=== PATIENT | male | born 1955 | race Caucasian/White ===

== ENCOUNTER → 2017-12-08 | Day surgery (SDC) | payer OTHER | END | disposition home or self-care (01) | LOC: ADM 12-01 12:30 → AMB-ENDOS 06:00 | DX: D13.1 Benign neoplasm of stomach (principal) ==

== ENCOUNTER 2024-03-07 21:00 | Emergency (ER) | payer OTHER ==
[~2024-03-07] VITALS: Ht 160 cm; Wt 63.5 kg
[2024-03-07] MEDS ORDERED: PREVACID30 M1 PO (21:05)
[2024-03-07] MEDS ORDERED: ATORVASTATIN CA10 MG PO (21:06)
[2024-03-07] MEDS ORDERED: TIROSINT137 MCG PO (21:06)
[2024-03-07] MEDS ORDERED: SERTRALINE HCL100 MG PO (21:06)
[2024-03-07] MEDS ORDERED: METFORMIN HCL500 M3 PO (21:07)
[2024-03-07] MEDS ORDERED: COZAAR50 MG PO (21:07)
[2024-03-07] MEDS ORDERED: TRAZODONE HCL100 MG PO (21:08)
[2024-03-07 23:55] LABS: HEMATOCRIT 37.6 % (39.0-48.0); HEMOGLOBIN 12.2 g/dL (13-16.00); MEAN CELL VOLUME 81.5 fL (80.0-100.00); MEAN CORPUSCULAR HEMOGLOBIN 26.4 pg (27.00-32.0); MEAN CORPUSCULAR HGB CONC 32.4 g/dl (32.0-36.0); PLATELET COUNT 200 K/uL (150-450); RED BLOOD COUNT 4.61 M/uL (4.00-6.00); RED CELL DISTRIBUTION WIDTH 20.5 % (11.5-14.5)
[2024-03-08] MEDS ORDERED: ACETAMINOPHEN 500 MG GEL..CAP PO STA (00:06)
[2024-03-08] MEDS ORDERED: ORPHENADRINE CITRATE 30 MG/ML AMPUL IM STA (00:07)
[2024-03-08 00:19] LABS: ALBUMIN 3.5 gm/dL (3.4-5.0); BILIRUBIN TOTAL 0.38 mg/dL (0.3-1.2); CALCIUM 9.3 mg/dL (8.5-10.1); CREATININE SERUM 1.25 mg/dL (0.70-1.30); GFR 57.1; GLOBULINA 3.3 G/DL (2.4-3.5); POTASSIUM 5.61 mEq/L (3.5-5.1); TOTAL PROTEIN 6.8 gm/dL (6.4-8.2)
[2024-03-08] MEDS ORDERED: ORPHENADRINE CITRATE 30 MG/ML AMPUL ONE (00:19)
[2024-03-08] MEDS ORDERED: ACETAMINOPHEN 500 MG GEL..CAP PO ONE (00:19)
[2024-03-08] MEDS ORDERED: NABUMETONE750 MG PO (02:36)
[2024-03-08] MEDS ORDERED: DOLOGESIC-DF 51 EACH PO ×2 (02:37→02:41)
== END 2024-03-08 02:54 ==
LOC: ER 21:01
PROVIDERS: General Practice
DX: S39.81XA Other specified injuries of abdomen, initial encounter (principal); W19.XXXA Unspecified fall, initial encounter; Y93.89 Activity, other specified; Y92.89 Other specified places as the place of occurrence of the external cause; Y99.8 Other external cause status; I10 Essential (primary) hypertension; E03.8 Other specified hypothyroidism; E11.9 Type 2 diabetes mellitus without complications; Z79.84 Long term (current) use of oral hypoglycemic drugs
CPT/HCPCS: 36415; 74177; 96372; 99284; J2360; Q9965

== ENCOUNTER 2024-03-14 14:06 | Outpatient (CLI) | payer OTHER ==
[~2024-03-14 14:06] MED LIST: ATORVASTATIN CA10 MG PO; COZAAR50 MG PO; DOLOGESIC-DF 51 EACH PO; METFORMIN HCL500 M3 PO; NABUMETONE750 MG PO; PREVACID30 M1 PO; SERTRALINE HCL100 MG PO; TIROSINT137 MCG PO; TRAZODONE HCL100 MG PO
== END 2024-03-14 14:16 | disposition home or self-care (01) ==
LOC: RAD 14:06
PROVIDERS: ATTEND Internal Medicine
DX: S20.302A Unspecified superficial injuries of left front wall of thorax, initial encounter (principal)

== ENCOUNTER 2024-07-21 19:26 | Emergency (ER) | payer OTHER ==
[~2024-07-21] VITALS: Ht 160 cm; Wt 63.5 kg
[2024-07-21] MEDS ORDERED: LEVALBUTEROL HCL 1.25 MG/3 ML SOLUTION IH STA (20:34)
[2024-07-21] MEDS ORDERED: NITROGLYCERIN 0.4 MG TAB.SUBL SL ONE (20:40)
[2024-07-21] MEDS ORDERED: IPRATROPIUM BROMIDE 0.5 MG/2.5 ML AMPUL.NEB IH SCH (20:45)
[2024-07-21] MEDS ORDERED: NITROGLYCERIN 0.4 MG TAB.SUBL SL SCH (20:45)
[2024-07-21 21:07] LABS: HEMATOCRIT 37.4 % (39.0-48.0); HEMOGLOBIN 12.5 g/dL (13-16.00); MEAN CELL VOLUME 86.9 fL (80.0-100.00); MEAN CORPUSCULAR HGB CONC 33.4 g/dl (32.0-36.0); PLATELET COUNT 242 K/uL (150-450); RED BLOOD COUNT 4.31 M/uL (4.00-6.00); RED CELL DISTRIBUTION WIDTH 13.9 % (11.5-14.5)
[2024-07-21] MEDS ORDERED: IPRATROPIUM BROMIDE 0.5 MG/2.5 ML AMPUL.NEB IH ONE (21:10)
[2024-07-21] MEDS ORDERED: LEVALBUTEROL HCL 1.25 MG/3 ML SOLUTION IH ONE (21:10)
[2024-07-21 21:31] LABS: ABG PH 7.459 (7.35-7.45); ABG PO2 107.3 mmHg (80-100); ABG pCO2 31.4 mmHg (35-45); BICARBONATE 21.8 mmol/l (23-25); SaO2 98.4 %; Tco2 22.8 mmol/l; allen test SATISFACTORY; puncture site RADIAL RIGHT
[2024-07-21 21:32] LABS: o2 21 %
== END 2024-07-21 22:46 | disposition home or self-care (01) ==
LOC: ER 19:29
PROVIDERS: General Practice
DX: J10.1 Influenza due to other identified influenza virus with other respiratory manifestations (principal); R05.8 Other specified cough; R07.89 Other chest pain; Z20.822 Contact with and (suspected) exposure to COVID-19

== ENCOUNTER 2024-12-20 07:08 | Outpatient (CLI) | payer OTHER | END 2024-12-20 07:09 | disposition home or self-care (01) | LOC: NUCLEAR 07:08 | PROVIDERS: ATTEND Physical Medicine & Rehabilitation | DX: M06.9 Rheumatoid arthritis, unspecified (principal); M13.0 Polyarthritis, unspecified | CPT/HCPCS: 78306; A9503 ==

== ENCOUNTER 2024-12-20 10:23 | Outpatient (CLI) | payer OTHER | END 2024-12-20 10:25 | disposition home or self-care (01) | LOC: RAD 10:23 | PROVIDERS: ATTEND Physical Medicine & Rehabilitation | DX: M54.2 Cervicalgia (principal); M06.9 Rheumatoid arthritis, unspecified ==

== ENCOUNTER 2025-03-06 07:04 | Outpatient (CLI) | payer OTHER | END 2025-03-06 07:05 | disposition home or self-care (01) | LOC: NUCLEAR 07:04 | PROVIDERS: ATTEND Internal Medicine | DX: I20.9 Angina pectoris, unspecified (principal) | CPT/HCPCS: 78452; 93017; A9500 ==

== ENCOUNTER 2025-03-08 10:43 | Emergency (ER) | payer OTHER ==
[~2025-03-08] VITALS: Ht 160 cm; Wt 63.5 kg
[2025-03-08 10:51] VITALS: BP 165/71; O2SAT 100
[2025-03-08 11:39] LABS: BASO % 0.5 % (0.1-1.2); EOS # 0.06 (0.04-0.54); EOS % 1.0 % (0.7-7.0); LYMPH # 0.65 (1.18-3.74); LYMPH % 10.9 % (19.3-53.1); MEAN PLATELET VOLUME 10.10 fl (9.4-12.4); MONO # 0.39 (0.24-0.82); MONO % 6.5 % (4.7-12.5); NEUT # 4.79 (1.56-6.13); NEUT % 80.4 % (34.0-71.1); RED CELL DISTRIBUTION WIDTH 13.6 % (11.6-14.4)
[2025-03-08 12:10] LABS: BUN CREA RATIO 19.0 (7.0-25.0); CREATININE SERUM 1.21 mg/dL (0.70-1.30); GFR 59.11; GLUCOSE FASTING 178.0 mg/dL (65-100); OSMOLALITY SERUM 295.0 MOSM/KG (275-295)
[2025-03-08] MEDS ORDERED: LEVALBUTEROL HCL 0.63 MG/3 ML SOLUTION IH ONE ×2 (12:57→13:00)
[2025-03-08 12:59] LABS: COVID-19 AG NEGATIVE (NEGATIVE)
== END 2025-03-08 15:13 | disposition home or self-care (01) ==
LOC: ER 10:48
PROVIDERS: Emergency Medicine
DX: R06.02 Shortness of breath (principal); Z20.822 Contact with and (suspected) exposure to COVID-19; I10 Essential (primary) hypertension; E03.8 Other specified hypothyroidism; E11.9 Type 2 diabetes mellitus without complications; Z79.84 Long term (current) use of oral hypoglycemic drugs

== ENCOUNTER 2025-03-13 10:25 | Outpatient (CLI) | payer OTHER | END 2025-03-13 10:32 | disposition home or self-care (01) | LOC: TOM 10:25 | PROVIDERS: ATTEND Internal Medicine | DX: J45.909 Unspecified asthma, uncomplicated (principal); Z87.891 Personal history of nicotine dependence ==